=== PATIENT | male | born 1965 | race Caucasian/White ===

== ENCOUNTER → 2017-07-10 | Outpatient (CLI) | payer OTHER ==
[~2017-07-10] MED LIST: None at this Time
== END ==
LOC: STAR 07:52
PROVIDERS: ATTEND Thoracic Surgery (Cardiothoracic Vascular Surgery)
DX: Z02.9 Encounter for administrative examinations, unspecified (principal)

== ENCOUNTER 2017-07-19 10:19 | Day surgery (SDC) | payer OTHER ==
[~2017-07-19] VITALS: Ht 185.4 cm; Wt 98.8 kg
[~2017-07-19 10:19] MED LIST changes: +BUPIVACAINE/PF 0.5% ONE
[2017-07-19] MEDS ORDERED: LACTATED RINGERS 1,000 ML IV SCH ×2 (10:46→14:11)
[2017-07-19 10:47] VITALS: BP 133/87
[2017-07-19] MEDS ORDERED: LIDOCAINE 1%, 2ML SQ PRN (11:00)
[2017-07-19] MEDS ORDERED: FENTANYL PF 100 MCG/2ML ONE ×3 (12:36→15:16)
[2017-07-19] MEDS ORDERED: MIDAZOLAM 1 MG/ML, 2ML ONE (12:36)
[2017-07-19] MEDS ORDERED: PROPOFOL 10 MG/ML, 20ML ONE (12:37)
[2017-07-19] MEDS ORDERED: NEOSTIGMINE 1 MG/ML, 10ML ONE (12:38)
[2017-07-19] MEDS ORDERED: GLYCOPYRROLATE 0.2MG/1ML, 5ML ONE (12:38)
[2017-07-19] MEDS ORDERED: SODIUM CHLORIDE 0.9% PF 10ML ONE (12:39)
[2017-07-19] MEDS ORDERED: CEFAZOLIN 1,000 MG ONE ×2 (12:39)
[2017-07-19] MEDS ORDERED: ROCURONIUM 10 MG/ML,10ML ONE (12:39)
[2017-07-19] MEDS ORDERED: MEPERIDINE/PF 25MG/0.5ML IVPush PRN (13:30)
[2017-07-19] MEDS ORDERED: hydrALAzine 20 MG/ML, 1ML IV PRN (13:30)
[2017-07-19] MEDS ORDERED: LABETALOL 5MG/ML, 20ML IV PRN (13:30)
[2017-07-19] MEDS ORDERED: ACETAMINOPHEN 325 MG TABLET PO PRN (13:30)
[2017-07-19] MEDS ORDERED: ONDANSETRON 2MG/ML, 2ML IVPush PRN ×2 (13:30→14:30)
[2017-07-19] MEDS ORDERED: OXYcodone 5 MG/5 ML ORAL.SOL UDC PO PRN (13:30)
[2017-07-19] MEDS ORDERED: PROMETHAZINE 25 MG/ML, 1ML IV PRN (13:30)
[2017-07-19] MEDS ORDERED: ACETAMINOPHEN 650 MG/20.3 ML UDC ONE (14:21)
[2017-07-19] MEDS ORDERED: OXYcodone 5 MG/5 ML ORAL.SOL UDC ONE (14:21)
[2017-07-19] MEDS ORDERED: HYDROcodone/APAP 5/325 TABLET PO PRN (14:30)
[2017-07-19] MEDS ORDERED: morphine SULFATE 10 MG/ML, 1ML IVPush PRN (14:30)
[2017-07-19] MEDS ORDERED: HYDROmorphone 2 MG/ML, 1ML ONE (14:31)
[2017-07-19] MEDS: HYDROmorphone 1 MG/ML, 1ML IV PRN ×4 (14:33→15:15)
[2017-07-19] MEDS ORDERED: ONDANSETRON 2MG/ML, 2ML ONE (14:50)
[2017-07-19] MEDS: FENTANYL PF 100 MCG/2ML IV PRN ×2 (15:17→15:24)
== END 2017-07-19 17:00 ==
LOC: OUT 10:19
PROVIDERS: ATTEND Thoracic Surgery (Cardiothoracic Vascular Surgery)
DX: K43.2 Incisional hernia without obstruction or gangrene (principal); Z88.1 Allergy status to other antibiotic agents; Z88.0 Allergy status to penicillin
CPT/HCPCS: 49565; 49568; C1781; J0690; J1170; J2250; J2405; J2704; J2710; J3010; J3490; J7120